=== PATIENT | female | born 1960 | race African-American/Black ===

== ENCOUNTER 2017-03-20 19:54 | Emergency (ER) | payer MEDICARE, MEDICAID ==
[~2017-03-20] VITALS: Ht 162.6 cm; Wt 111.1 kg
--- NOTE | 2017-03-20 20:39 | Emergency Room Report ---
History of Present Illness General Chief Complaint: General Complaint Source: Patient (Ezequiel Parker M.D.) Present Illness HPI Patient presents with increased pain in her left ankle. This is associated with swelling of her left leg and calf pain. In addition she's had some shortness of breath and wheezing. She is a history of asthma. She does not have an inhaler at this time. She denies any fevers or chills. Just some pain in her groin and upper her lower abdomen. The pain in her abdomen is fairly significant when she has it - it doubles her over. The ankle pain is 6/10, aching/swelling, constant. No prior h/o clots. Not smoke. H/O asthma. She has heard herself wheezing. There is some VILLELA. No chest pain. She had ankle fx age 13. Has had occasional pain there since. (Ezequiel Parker M.D.) Allergies: Coded Allergies: CODEINE (Verified Allergy, Unknown, 03/20/17) PENICILLINS (Unverified Allergy, Unknown, 03/20/17) Patient History Past Medical History: see triage record Social History: Denies: smoking Reviewed Nursing Documentation: PMH: Agreed, PSxH: Agreed (Ezequiel Parker M.D.) Nursing Documentation-PMH Hx Asthma: Yes Hx Diabetes: Yes History Of Psychiatric Problem: Yes - Schizophrenia (Ezequiel Parker M.D.) Review of Systems All Other Systems: negative except mentioned in HPI (Ezequiel Parker M.D.) Physical Exam Vital Signs Date Time Temp Pulse Resp B/P Pulse Ox O2 Delivery O2 Flow Rate FiO2 03/20/17 20:02 97.9 89 16 108/71 97 Room Air Sp02 EP Interpretation: reviewed, normal General Appearance: well appearing, no apparent distress, GCS 15 Head: normocephalic Eyes: bilateral eye PERRL, bilateral eye normal inspection ENT: moist mucus membranes Neck: supple Respiratory: wheezing, expiration Cardiovascular #1: edema - L Cardiovascular #2: 2+ radial (R) Gastrointestinal: normal inspection, normal bowel sounds, non tender, no mass, non-distended Musculoskeletal: calf tenderness, swelling - ankle Neurologic: alert, oriented x3, grossly normal Psychiatric: mood/affect normal Skin: normal inspection, warm/dry (Ezequiel Parker M.D.) Medical Decision Making Diagnostic Impression: Primary Impression: Ankle pain, left Qualified Codes: M25.572 - Pain in left ankle and joints of left foot Additional Impression: Dyspnea with bronchospasm ER Course Patient presents with left ankle pain Pain and shortness of breath. Differential includes gout, asthma, pulmonary embolus, DVT amongst others. Today evaluated with a nasogastric study and also chest x-ray and labs. In addition to that she'll be treated with albuterol and toradol. EKG and CXR negative (LAE). + D dimer. CTA ordered. If non-invasive + will anticoagulate. If negative CTA will be done. Uric acid negative. Improved with treatment. Decreased pain in abd. Dyspnea improved with breathing treatment. Signed out to Dr. Chambers. Laboratory Tests Test 03/20/17 20:51 03/20/17 20:52 Urine Color Pale yellow Urine Appearance Clear Urine pH 7 (4.5-8.0) Urine Specific [place] 1.015 (1.005-1.035) Urine Protein Negative (NEGATIVE) Urine Glucose (UA) Negative (NEGATIVE) Urine Ketones Negative (NEGATIVE) Urine Occult Blood Negative (NEGATIVE) Urine Nitrite Negative (NEGATIVE) Urine Bilirubin Negative (NEGATIVE) Urine Urobilinogen 1 MG/DL (0.0-1.0) H Urine Leukocyte Esterase 2+ (NEGATIVE) H Urine RBC 0-2 /HPF (0 - 2) Urine WBC 2-4 /HPF (0 - 2) Urine Squamous Epithelial Cells Few /LPF (NONE/OCC) Urine Amorphous Sediment Few /LPF (NONE) H Urine Bacteria Few /HPF (NONE) White Blood Count 6.1 K/UL (4.8-10.8) Red Blood Count 3.78 M/UL (4.20-5.40) L Hemoglobin 11.7 G/DL (12.0-16.0) L Hematocrit 34.2 % (37.0-47.0) L Mean Corpuscular Volume 91 FL (80-99) Mean Corpuscular Hemoglobin 30.9 PG (27.0-31.0) Mean Corpuscular Hemoglobin Concent 34.1 G/DL (32.0-36.0) Red Cell Distribution Width 12.5 % (11.6-14.8) Platelet Count 199 K/UL (150-450) Mean Platelet Volume 7.1 FL (6.5-10.1) Neutrophils (%) (Auto) 54.3 % (45.0-75.0) Lymphocytes (%) (Auto) 36.4 % (20.0-45.0) Monocytes (%) (Auto) 6.3 % (1.0-10.0) Eosinophils (%) (Auto) 2.2 % (0.0-3.0) Basophils (%) (Auto) 0.9 % (0.0-2.0) Prothrombin Time 10.5 SEC (9.30-11.50) Prothrombin Time INR 1.0 (0.9-1.1) PTT 26 SEC (23-33) D-Dimer 1248 ng/mL (<500) H Sodium Level 140 mEQ/L (135-145) Potassium Level 3.6 mEQ/L (3.4-4.9) Chloride Level 99 mEQ/L (98-107) Carbon Dioxide Level 29 mEQ/L (20-30) Anion Gap 12 (5-15) Blood Urea Nitrogen 13 mg/dL (7-23) Creatinine 0.9 mg/dL (0.5-0.9) Estimate Glomerular Filtration Rate > 60 mL/min (>60) Glucose Level 118 mg/dL (74-106) H Uric Acid 6.1 mg/dL (3.0-7.5) Calcium Level 9.7 mg/dL (8.6-10.2) Total Bilirubin 0.4 mg/dL (0.0-1.2) Aspartate Amino Transferase (AST) 17 U/L (5-40) Alanine Aminotransferase (ALT) 20 U/L (3-33) Alkaline Phosphatase 88 U/L (35-104) Total Creatine Kinase 89 U/L (26-140) Troponin I < 0.30 ng/mL (<=0.30) Pro-B-Type Natriuretic Peptide 38 pg/mL (0-125) Total Protein 7.6 g/dL (6.6-8.7) Albumin 4.1 g/dL (3.5-5.2) Globulin 3.5 g/dL Albumin/Globulin Ratio 1.1 (1.0-2.7) Lipase 34 U/L (< 60) (Ezequiel Parker M.D.) ER Course Patient signed out to me. She presents with left ankle pain. Ultrasound study was negative for DVT. CT chest was negative for PE. She had a 2 cm masslike parenchymal asymmetry the right lateral breast. Recommended mammography followup. She had mammography done 3 or 4 months ago and was told everything was normal and at baseline. She has some deformity to her left ankle medially. Appear to be enlarged calcified bone. She said that she broke her ankle when she was 15. She's been having problem with it since. (JEANMARIE CHAMBERS M.D.) EKG Diagnostic Results Rate: normal Rhythm: NSR ST Segments: no acute changes (Ezequiel Parker M.D.) Rhythm Strip Diag. Results EP Interpretation: yes Rhythm: NSR, no PVC's, no ectopy (Ezequiel Parker M.D.) Chest X-Ray Diagnostic Results EP Interpretation: Yes Findings: no consolidation, no effusion, no pneumothorax, no acute cardiopulmonary disease Number of Views: 1 (Ezequiel Parker M.D.) Other X-Ray Diagnostic Results Other X-Ray Diagnostic Results : X-Ray Ordered: Ultrasound of left leg Date: Mar 21, 2017 Time: 00:03 EP Interpretation: No Findings: other - No DVT per jerker. (JEANMARIE CHAMBERS M.D.) CT/MRI/US Diagnostic Results CT/MRI/US Diagnostic Results : Imaging Test Ordered: CT chest Impression no central PE per radiologist. (JEANMARIE CHAMBERS M.D.) Last Vital Signs Date Time Temp Pulse Resp B/P Pulse Ox O2 Delivery O2 Flow Rate FiO2 03/21/17 00:18 98.0 77 16 128/76 98 Room Air Status: improved (Ezequiel Parker M.D.) Status: improved (JEANMARIE CHAMBERS M.D.) Disposition: HOME, SELF-CARE Condition: Stable Scripts Ibuprofen* (MOTRIN*) 600 Mg Tablet 600 MG ORAL THREE TIMES A DAY, #30 TAB 0 Refills Prov: JEANMARIE CHAMBERS M.D. 03/21/17 Hydrocodone/Acetaminophen 5-325* (HYDROCODONE/ACETAMINOPHEN 5-325*) 1 Each Tablet 1 TAB ORAL Q6H Y for For Pain, #20 TAB 0 Refills Prov: JEANMARIE CHAMBERS M.D. 03/21/17 Additional Instructions: Followup with your DrVivienne in 7 days. Return if symptom worsen. Ezequiel Parker M.D. Mar 20, 2017 20:39 JEANMARIE CHAMBERS M.D. Mar 21, 2017 00:05
[2017-03-20] MEDS ORDERED: Ketorolac 30mg Inj IV ONE (20:45)
[2017-03-20] MEDS ORDERED: Ipratropium 0.02% Inh Soln 2.5ml UD HHN ONE (20:45)
[2017-03-20] MEDS ORDERED: Albuterol ud Inhalation HHN ONE (20:45)
[2017-03-20] MEDS ORDERED: LEVOTHYROXINE75 MCG ORAL (21:16)
[2017-03-20] MEDS ORDERED: LORATADINE10 M2 PO (21:16)
[2017-03-20] MEDS ORDERED: VITAMINS PO (21:16)
[2017-03-20 21:18] LABS: APPEARANCE,URINE CLEAR; KETONES,URINE NEGATIVE (NEGATIVE); LEUKOCYTE ESTERASE ,URINE 2+ (NEGATIVE); NITRITE,URINE NEGATIVE (NEGATIVE); PH,URINE 7 (4.5-8.0); PROTEIN,URINE NEGATIVE (NEGATIVE); UROBILINOGEN,URINE 1 MG/DL (0.0-1.0)
[2017-03-20] MEDS ORDERED: ADVAIR 100-501 EACH INH (21:18)
[2017-03-20] MEDS ORDERED: TUSSIN DM PO (21:18)
[2017-03-20] MEDS ORDERED: OXYBUTYNIN CHLOR5 M1 ORAL (21:18)
[2017-03-20] MEDS ORDERED: TOPIRAMATE25 MG ORAL (21:20)
[2017-03-20] MEDS ORDERED: ATIVAN0.5 MG ORAL (21:20)
[2017-03-20] MEDS ORDERED: FANAPT1 MG ORAL (21:20)
[2017-03-20] MEDS ORDERED: CELEXA20 MG ORAL (21:20)
[2017-03-20] MEDS ORDERED: VENTOLIN HFA18 GM INH (21:20)
[2017-03-20 21:28] LABS: BASOPHILS % (AUTO) 0.9 % (0.0-2.0); EOSINOPHILS % (AUTO) 2.2 % (0.0-3.0); LYMPHOCYTES % (AUTO) 36.4 % (20.0-45.0); MEAN CORPUSCULAR HEMOGLOBIN 30.9 PG (27.0-31.0); MEAN CORPUSCULAR HGB CONC 34.1 G/DL (32.0-36.0); MEAN CORPUSCULAR VOLUME 91 FL (80-99); MEAN PLATELET VOLUME 7.1 FL (6.5-10.1); MONOCYTES % (AUTO) 6.3 % (1.0-10.0); NEUTROPHILS % (AUTO) 54.3 % (45.0-75.0); PLATELET COUNT 199 K/UL (150-450); RED BLOOD COUNT 3.78 M/UL (4.20-5.40); RED CELL DISTRIBUTION WIDTH 12.5 % (11.6-14.8); WHITE BLOOD COUNT 6.1 K/UL (4.8-10.8)
[2017-03-20 21:30] LABS: AMORPHOUS SEDIMENT,UR FEW /LPF; BACTERIA,URINE FEW /HPF; RBC,URINE 0-2 /HPF (0 - 2); SQUAMOUS EPITHELIAL CELL,UR FEW /LPF (NONE/OCC)
[2017-03-20 21:35] LABS: PROTHROMBIN TIME 10.5 SEC (9.30-11.50)
[2017-03-20 21:36] LABS: ALANINE AMINOTRANSFERASE 20 U/L (3-33); ALBUMIN/GLOBULIN RATIO 1.1 (1.0-2.7); ANION GAP 12 (5-15); ASPARTATE AMINO TRANSFERASE 17 U/L (5-40); CALCIUM 9.7 mg/dL (8.6-10.2); CARBON DIOXIDE 29 mEQ/L (20-30); CHLORIDE 99 mEQ/L (98-107); CREATININE 0.9 mg/dL (0.5-0.9); GLOMERULAR FILTRATION RATE > 60 mL/min (>60); HEMOLYSIS 4; LIPASE 34 U/L (< 60); POTASSIUM 3.6 mEQ/L (3.4-4.9); SODIUM 140 mEQ/L (135-145); TOTAL PROTEIN 7.6 g/dL (6.6-8.7); URIC ACID 6.1 mg/dL (3.0-7.5)
[2017-03-20 21:37] LABS: TROPONIN I < 0.30 ng/mL (<=0.30)
[2017-03-20 23:00] VITALS: BP 128/76
[2017-03-21] MEDS ORDERED: HYDROCODON-ACE1 EA15 ORAL (00:04)
[2017-03-21] MEDS ORDERED: IBUPROFEN600 MG ORAL (00:04)
[2017-03-21] MEDS ORDERED: Norco 5mg/325mg tab ONE (00:06)
[2017-03-21] MEDS ORDERED: Norco 5mg/325mg tab ORAL ONE (00:15)
[2017-03-21 00:17] VITALS: BP 124/74
[2017-03-21 00:18] VITALS: BP 128/76
--- NOTE | 2017-03-21 04:58 | Emergency Room Report ---
Physical Exam Vital Signs Date Time Temp Pulse Resp B/P Pulse Ox O2 Delivery O2 Flow Rate FiO2 03/20/17 20:02 97.9 89 16 108/71 97 Room Air Medical Decision Making Diagnostic Impression: Primary Impression: Ankle pain, left Qualified Codes: M25.572 - Pain in left ankle and joints of left foot Additional Impression: Dyspnea with bronchospasm ER Course Patient presents with ankle pain. Her ultrasound was negative. I thought that she R. he had a CT chest. I was mistaken. This was from another patient. She did not get a CT chest. She did not have any respiratory issue. She said she felt better. I discharged her believing that CT was already done and was negative. We will call her back. We'll get a CT to rule out PE. Last Vital Signs Date Time Temp Pulse Resp B/P Pulse Ox O2 Delivery O2 Flow Rate FiO2 03/21/17 00:18 98.0 77 16 128/76 98 Room Air Disposition: HOME, SELF-CARE Condition: Stable Scripts Ibuprofen* (MOTRIN*) 600 Mg Tablet 600 MG ORAL THREE TIMES A DAY, #30 TAB 0 Refills Prov: JEANMARIE CHAMBERS M.D. 03/21/17 Hydrocodone/Acetaminophen 5-325* (HYDROCODONE/ACETAMINOPHEN 5-325*) 1 Each Tablet 1 TAB ORAL Q6H Y for For Pain, #20 TAB 0 Refills Prov: JEANMARIE CHAMBERS M.D. 03/21/17 Referrals: NON PHYSICIAN (PCP) Patient Instructions: Ankle Pain Additional Instructions: Followup with your DrVivienne in 7 days. Return if symptom worsen. JEANMARIE CHAMBERS M.D. Mar 21, 2017 04:58
[2017-03-21] MEDS ORDERED: ALBUTEROL SULF8.5 GM INH (14:13)
--- NOTE | 2017-03-22 09:42 | Diagnostic Imaging Report ---
Indications: DYSPNEA Technique: Portable AP chest Findings: Comparison: None Mild lung volume asymmetry, right greater left. Small soft tissue convexity left cardiophrenic angle. Left costophrenic angle mildly blunted; right sharp. Lungs otherwise clear. Cardiac silhouette apparently mildly enlarged. Pulmonary vasculature within normal limits. Aortic arch calcified. Thoracic spine demonstrates mild scoliosis and bridging disc marginal osteophytes. IMPRESSION: Left] density most likely prominent epicardial fat pad. Left the left costophrenic angle may be due to above. Small pleural effusion not excludable. No other evidence of acute crater pulmonary disease Apparent mild cardiomegaly, may be artifactually enhanced by technique. Ureter sclerosis Degenerative spondylosis and scoliosis Upright PA and lateral chest radiographs with better inspiratory effort and optimal technique recommended for more complete evaluation.
--- NOTE | 2017-03-22 14:28 | Diagnostic Imaging Report ---
APPROVED REPORT CPT Code: 91827 Present Symptoms Lower Extremity Pain: Left Lower Extremity Edema: Left LEFT LEG: Venous imaging reveals a patent deep venous system. There is no evidence of thrombus within the femoral, popliteal or tibial segments. The greater saphenous vein is also within normal limits. Doppler indicates normal spontaneous flow within these segments.
== END 2017-03-21 00:22 | disposition home or self-care (01) ==
LOC: EMR 20:30
DX: M25.572 Pain in left ankle and joints of left foot (principal); R06.00 Dyspnea, unspecified; J98.01 Acute bronchospasm; J45.909 Unspecified asthma, uncomplicated; Z88.6 Allergy status to analgesic agent; Z88.0 Allergy status to penicillin; E11.9 Type 2 diabetes mellitus without complications; F20.9 Schizophrenia, unspecified
CPT/HCPCS: 36415; 71010; 80053; 81003; 82550; 83690; 83880; 84484; 84550; 85025; 85379; 85610; 85730; 93005; 93971; 94640; 94664; 96374; 99284; J1885

== ENCOUNTER 2017-03-21 08:22 | Emergency (ER) | payer MEDICARE, MEDICAID ==
[~2017-03-21] VITALS: Ht 162.6 cm; Wt 113.4 kg
[~2017-03-21 08:22] MED LIST: ADVAIR 100-501 EACH INH; ATIVAN0.5 MG ORAL; CELEXA20 MG ORAL; FANAPT1 MG ORAL; HYDROCODON-ACE1 EA15 ORAL; IBUPROFEN600 MG ORAL; LEVOTHYROXINE75 MCG ORAL; LORATADINE10 M2 PO; OXYBUTYNIN CHLOR5 M1 ORAL; TOPIRAMATE25 MG ORAL; TUSSIN DM PO; VENTOLIN HFA18 GM INH; VITAMINS PO
--- NOTE | 2017-03-21 08:52 | Emergency Room Report ---
History of Present Illness General Chief Complaint: General Complaint Source: Patient Present Illness HPI Patient presents back after being called by hospital Patient was here last night apparently was thought to have CT chest However this had not been done Patient was here previously with ankle swelling and questionable shortness of breath At this time denies any shortness of breath Denies any chest pain However given the elevated d-dimer and the patient's previous evaluation Patient presents back to have her imaging studies completed Allergies: Coded Allergies: CODEINE (Verified Allergy, Unknown, 03/20/17) PENICILLINS (Unverified Allergy, Unknown, 03/20/17) Patient History Past Medical History: see triage record Pertinent Family History: none Reviewed Nursing Documentation: PMH: Agreed, PSxH: Agreed Nursing Documentation-PMH Hx Cardiac Problems: Yes - thyroid Hx Asthma: Yes Hx Diabetes: Yes History Of Psychiatric Problem: Yes - Schizophrenia Review of Systems All Other Systems: negative except mentioned in HPI Physical Exam Vital Signs Date Time Temp Pulse Resp B/P Pulse Ox O2 Delivery O2 Flow Rate FiO2 03/21/17 08:27 97.9 72 18 119/79 96 Room Air Sp02 EP Interpretation: reviewed, normal General Appearance: well appearing, no apparent distress Head: normocephalic, atraumatic Eyes: bilateral eye EOMI, bilateral eye PERRL ENT: hearing grossly normal, normal pharynx, TMs + canals normal, uvula midline Neck: full range of motion, supple, no meningismus, no bony tend Respiratory: lungs clear, normal breath sounds, no rhonchi, no respiratory distress, no retraction, no accessory muscle use Cardiovascular #1: normal peripheral pulses, regular rate, rhythm, no edema, no gallop, no JVD, no murmur Gastrointestinal: normal bowel sounds, non tender, soft, no mass, no organomegaly, non-distended, no guarding, no hernia, no pulsatile mass, no rebound Genitourinary: no CVA tenderness Musculoskeletal: swelling - Very minimal swelling involving affected ankle fairly well localized Neurologic: oriented x3, responsive, rating officer III-XII nml as tested, motor strength/ tone normal, sensory intact Psychiatric: mood/affect normal Skin: normal color, no rash, warm/dry, palpation normal Lymphatic: normal inspection, no adenopathy Medical Decision Making Diagnostic Impression: Primary Impression: Ankle pain, left ER Course Patient had a fairly extensive course in the emergency room There was 2 different occasions with IV infiltration Eventually IV established Patient's CT was performed without any evidence of pulmonary embolism Patient remained asymptomatic throughout her course otherwise And is otherwise stable for close outpatient followup CT/MRI/US Diagnostic Results CT/MRI/US Diagnostic Results : Impression CTA chestIMPRESSION: No evidence of pulmonary embolism Pulmonary bibasal subsegmental atelectasis Suggestion of flow-limiting stenosis right subclavian vein Degenerative spondylosis Last Vital Signs Date Time Temp Pulse Resp B/P Pulse Ox O2 Delivery O2 Flow Rate FiO2 03/21/17 08:27 97.9 72 18 119/79 96 Room Air Status: improved Disposition: HOME, SELF-CARE Condition: Improved Referrals: NON PHYSICIAN (PCP) Additional Instructions: Patient is provided with the discharge instructions notified to follow up with primary doctor in the next 2-3 days otherwise return to the er with any worsening symptoms. Please note that this report is being documented using [email or web address] technology. This can lead to erroneous entry secondary to incorrect interpretation by the dictating instrument. KENA SALTER D.O. Mar 21, 2017 08:51
--- NOTE | 2017-03-21 11:39 | Diagnostic Imaging Report ---
Indications: Shortness of breath 4 days Technique: Continuous helical CT imaging of the thorax was performed with automatic exposure control, following bolus intravenous administration of nonionic iodine contrast, on a Siemens sensation [address] scanner. Axial images reconstructed at 3 mm slice thickness and 1.5 mm interval. Coronal and sagittal images were reconstructed at 3 mm slice thickness. Coronal and sagittal two-dimensional maximum intensity projection and three-dimensional volume-rendered images were reconstructed on a stand alone workstation. Patient injected and scanned twice due to poor initial contrast bolus. CTDI volume(s): 13x2, 2:15, 35, 36 mGy Total DLP: 1446, 1194 mGy-cm Findings: Comparison: None The main pulmonary artery, right and left pulmonary arteries, and pulmonary artery branches to the level of third order branching are patent and well-opacified. No intraluminal filling defects are demonstrated. Thoracic aorta and great vessels are patent and well-opacified with mild scattered calcified plaquing, normal in caliber and configuration. No evidence of aneurysm, dissection, or leak. Size. No pericardial abnormality. No mediastinal or hilar enlarged lymph nodes, other abnormal mass fluid collection. Significant residual opacification of right central veins and associated collateral venous branches in right chest wall and neck base. Lungs normally, symmetrically inflated. Irregular pleural-based linear and patchy opacities in the dependent portions of both lung bases. Small right pleural effusion. Chest wall soft tissues otherwise nonfocal. Imaged upper abdominal anatomy unremarkable. Bridging osteophytes throughout thoracic spine. IMPRESSION: No evidence of pulmonary embolism Pulmonary bibasal subsegmental atelectasis Suggestion of flow-limiting stenosis right subclavian vein Degenerative spondylosis
[2017-03-21 13:07] VITALS: BP 125/83
[2017-03-21] MEDS ORDERED: ALBUTEROL SULF8.5 GM INH (14:13)
== END 2017-03-21 13:09 | disposition home or self-care (01) ==
LOC: EMR 08:39
DX: M25.572 Pain in left ankle and joints of left foot (principal); M47.9 Spondylosis, unspecified; J98.11 Atelectasis; J90 Pleural effusion, not elsewhere classified; Z88.6 Allergy status to analgesic agent; Z88.0 Allergy status to penicillin; J45.909 Unspecified asthma, uncomplicated; E11.9 Type 2 diabetes mellitus without complications; F20.9 Schizophrenia, unspecified
CPT/HCPCS: 71275; 99284; Q9967

== ENCOUNTER 2018-10-22 10:14 | Emergency (ER) | payer MEDICARE, OTHER ==
[~2018-10-22] VITALS: Ht 162.6 cm; Wt 113.4 kg
[~2018-10-22 10:14] MED LIST changes: +ALBUTEROL SULF8.5 GM INH
[2018-10-22] MEDS ORDERED: ZITHROMAX250 MG ORAL (10:54)
[2018-10-22] MEDS ORDERED: IBUPROFEN600 MG ORAL (10:54)
[2018-10-22 10:59] VITALS: BP_SYST 122; BP_DIAS 74; BP_DIAS 84
--- NOTE | 2018-10-22 12:54 | Emergency Room Report ---
History of Present Illness General Chief Complaint: Upper Respiratory Illness Source: Patient Present Illness HPI 58-year-old female presents ED for evaluation. Complaining of runny nose cough and sore throat 3 days. Afebrile. Denies sick contacts or travel. Cough is dry. Pain is 5 out of 10, throbbing, nonradiating. No other aggravating relieving factors. Denies any other associated symptoms Allergies: Coded Allergies: CODEINE (Verified Allergy, Unknown, 03/20/17) PENICILLINS (Unverified Allergy, Unknown, 03/20/17) Patient History Past Medical History: asthma Past Surgical History: none Pertinent Family History: none Social History: Denies: smoking, alcohol use, drug use Now: No Immunizations: UTD Reviewed Nursing Documentation: PMH: Agreed; PSxH: Agreed Nursing Documentation-PMH Past Medical History: No History, Except For Hx Cardiac Problems: Yes - thyroid Hx Asthma: Yes Hx Diabetes: Yes - Hypothyroid Review of Systems All Other Systems: negative except mentioned in HPI Physical Exam Vital Signs Date Time Temp Pulse Resp B/P (MAP) Pulse Ox O2 Delivery O2 Flow Rate FiO2 10/22/18 10:16 98.1 75 20 113/76 97 Room Air Sp02 EP Interpretation: reviewed, normal General Appearance: no apparent distress, alert, GCS 15, non-toxic Head: normocephalic, atraumatic Eyes: bilateral eye normal inspection, bilateral eye PERRL ENT: hearing grossly normal, no angioedema, normal voice, pharyngeal erythema, tonsillar exudate Neck: full range of motion, supple/symm/no masses Respiratory: chest non-tender, lungs clear, normal breath sounds, speaking full sentences Cardiovascular #1: regular rate, rhythm, no edema Cardiovascular #2: 2+ carotid (R), 2+ carotid (L), 2+ radial (R), 2+ radial (L) , 2+ dorsalis pedis (R), 2+ dorsalis pedis (L) Gastrointestinal: normal bowel sounds, non tender, soft, non-distended, no guarding, no rebound Rectal: deferred Genitourinary: normal inspection, no CVA tenderness Musculoskeletal: back normal, gait/station normal, normal range of motion, non- tender Neurologic: alert, oriented x3, responsive, motor strength/tone normal, sensory intact, speech normal Psychiatric: judgement/insight normal, memory normal, mood/affect normal, no suicidal/homicidal ideation Reflexes: 3+ bicep (R), 3+ bicep (L), 3+ tricep (R), 3+ tricep (L), 3+ knee (R) , 3+ knee (L) Skin: normal color, no rash, warm/dry, well hydrated Lymphatic: no adenopathy Medical Decision Making Diagnostic Impression: Primary Impression: Pharyngitis Qualified Codes: J02.9 - Acute pharyngitis, unspecified ER Course Hospital Course 58-year-old female presents to ED complaining of sore throat + cough Differential diagnoses include: URI, pharyngitis, otitis media Clinical course Patient placed on stretcher. After initial history, physical exam reveals a middle aged female in no acute distress. Bilateral TM unremarkable. There is pharyngeal erythema w/ tonsillar exudates. No lymphadenopathy. Clinical findings consistent with pharyngitis. Reassurance given. Safe for discharge close outpatient follow-up. We'll provide prescription for antibiotics Diagnosis - pharyngitis Stable and discharged home with prescriptions for evy see. Instructed to followup with PMD. return to ED if symptoms recur or worsen Last Vital Signs Date Time Temp Pulse Resp B/P (MAP) Pulse Ox O2 Delivery O2 Flow Rate FiO2 10/22/18 10:59 98.5 77 17 122/84 98 Room Air Status: improved Disposition: HOME, SELF-CARE Condition: Stable Scripts Ibuprofen* (MOTRIN*) 600 Mg Tablet 600 MG ORAL Q8H PRN for For Pain, #30 TAB 0 Refills Prov: Ruben Jimenez MD 10/22/18 Azithromycin* (ZITHROMAX*) 250 Mg Tablet 250 MG ORAL DAILY, #6 TAB 0 Refills Take two tables once daily for 1 day, then one tablet once daily for 4 days. Prov: Ruben Jimenez MD 10/22/18 Patient Instructions: Pharyngitis, [id number] Ruben Jimenez MD Oct 22, 2018 12:54
== END 2018-10-22 10:59 | disposition home or self-care (01) ==
LOC: EMR 10:44
DX: J02.9 Acute pharyngitis, unspecified (principal); E03.9 Hypothyroidism, unspecified; J45.909 Unspecified asthma, uncomplicated; Z88.0 Allergy status to penicillin; Z88.5 Allergy status to narcotic agent
CPT/HCPCS: 99283

== ENCOUNTER 2018-11-20 14:19 | Emergency (ER) | payer MEDICARE, OTHER ==
[~2018-11-20] VITALS: Ht 162.6 cm; Wt 115.2 kg
[~2018-11-20 14:19] MED LIST changes: +ZITHROMAX250 MG ORAL
[2018-11-20 14:24] VITALS: BP 125/87
[2018-11-20] MEDS ORDERED: TESSALON PERLE100 MG ORAL (14:52)
--- NOTE | 2018-11-20 14:52 | Emergency Room Report ---
History of Present Illness General Chief Complaint: Sore Throat Source: Patient Present Illness HPI 58-year-old female patient presents the ER complaining of sore throat times 3 days. Patient reports pain with swallowing. Patient reports dry cough during this time. Patient denies fever. Denies recent travel. Reports has been taking cough medicine at home. Reports history of asthma, denies breathing difficulties or shortness of breath. Reports has been using inhaler at home. Denies abdominal pain or vomiting. Denies recent cold. Denies calf pain. Allergies: Coded Allergies: CODEINE (Verified Allergy, Unknown, 03/20/17) PENICILLINS (Unverified Allergy, Unknown, 03/20/17) Patient History Past Medical History: see triage record Reviewed Nursing Documentation: PMH: Agreed; PSxH: Agreed Nursing Documentation-PMH Past Medical History: No History, Except For Hx Cardiac Problems: Yes Hx Hypertension: No Hx Pacemaker: No Hx Asthma: Yes Hx COPD: No Hx Diabetes: Yes - Hypothyroid Hx Cancer: No Hx Gastrointestinal Problems: No Hx Dialysis: No History Of Psychiatric Problem: Yes - Schizophrenia Hx Neurological Problems: No Hx Cerebrovascular Accident: No Hx Seizures: No Review of Systems All Other Systems: negative except mentioned in HPI Physical Exam Vital Signs Date Time Temp Pulse Resp B/P (MAP) Pulse Ox O2 Delivery O2 Flow Rate FiO2 11/20/18 14:24 98.2 85 14 125/87 94 Room Air Sp02 EP Interpretation: reviewed, normal General Appearance: well appearing, no apparent distress, alert, GCS 15, non- toxic Head: normocephalic, atraumatic Eyes: bilateral eye normal inspection, bilateral eye PERRL ENT: hearing grossly normal, normal pharynx, no angioedema, normal voice, TMs + canals normal, uvula midline, moist mucus membranes Neck: full range of motion Respiratory: lungs clear, normal breath sounds, no rhonchi, no respiratory distress, no accessory muscle use, no wheezing, speaking full sentences Cardiovascular #1: regular rate, rhythm, no edema Musculoskeletal: back normal, digits/nails normal, gait/station normal, normal range of motion, non-tender, no calf tenderness, Karen's Sign negative Neurologic: alert, oriented x3, responsive, motor strength/tone normal, sensory intact Psychiatric: mood/affect normal Skin: no rash Lymphatic: no adenopathy Medical Decision Making PA Attestation Dr. Goldman is my supervising Physician whom patient management has been discussed with. Diagnostic Impression: Primary Impression: Sore throat Additional Impression: Cough ER Course Pt presents to ED c/o sore throat. DDX considered but are not limited to pharyngitis, laryngitis, URI, peritonsillar abscess, tonsillitis, pneumonia. Low suspicion for peritonsillar abscess, no neck stiffness, no hot potato voice , no stridor. Lungs clear to auscultation, no wheezes, rhonci, rales, afebrile, no fever at home, low suspicion for PNA. Does not require imaging at this time. VITAL SIGNS are WNL, patient is afebrile. ER COURSE: Provided with viscous lidocaine and Tessalon Perles for cough in the ER. Physical exam shows no pharyngeal erythema or tonsillar swelling, no tonsillar exudates, fever, no lymphadenopathy, history of cough, low suspicion for bacterial etiology of symptoms, likely viral in nature. Lungs clear to auscultation, no wheezes rhonchi rales, denies difficulty breathing, declines need for refill of albuterol medication or breathing treatment while in the ER. Sore throat likely secondary to cough, advised patient to take Tylenol. Patient reports feeling better following administration of medication Salt water gargles Follow-up with primary care provider. ER precautions given. DISCHARGE: Rx provided for Tessalon Perles At this time pt is stable for d/c to home. Patient is resting comfortably, in no acute distress, nontoxic appearing, talking without difficulty. Will provide with patient care instructions and any necessary prescriptions. Patient to take medication as instructed. Care plan and follow-up instructions provided. Patient questions asked and answered. Patient instructed to follow-up with primary care provider in 3 - 5 days. ER precautions given. Patient instructed to return to ER immediately for any new or worsening of symptoms including but not limited to intractable vomiting, difficulty breathing, inability to eat. - Please note that this Emergency Department Report was dictated using [employer] Technologiespatient scheduling coordinator technology software, occasionally this can lead to erroneous entry secondary to interpretation by the dictation equipment. Last Vital Signs Date Time Temp Pulse Resp B/P (MAP) Pulse Ox O2 Delivery O2 Flow Rate FiO2 11/20/18 14:24 98.2 85 14 125/87 94 Room Air Status: improved Disposition: HOME, SELF-CARE Condition: Stable Scripts Benzonatate* (PREETISALMICHAEL POLO*) 100 Mg Capsule 100 MG ORAL THREE TIMES A DAY, #20 PERLE Prov: Lance Colin 11/20/18 Patient Instructions: Cough, Adult, [id number], Sore Throat Additional Instructions: Followup with primary care provider in 3 -5 days. Salt water gargles Take Tylenol for pain and fever symptoms Drink plenty of water. Take medications as directed. Patient questions asked and answered. ER precautions given, patient instructed to return to ER immediately for any new or worsening of symptoms including but not limited to intractable vomiting, difficulty breathing, inability to eat. Lance Colin Nov 20, 2018 14:52
[2018-11-20 14:59] VITALS: BP 112/68
[2018-11-20] MEDS ORDERED: Benzonatate 100mg Perles ORAL ONE (15:00)
[2018-11-20] MEDS ORDERED: Lidocaine 2% Visc 15ml soln ORAL ONE (15:00)
== END 2018-11-20 14:59 | disposition home or self-care (01) ==
LOC: EMR 14:50
DX: J02.9 Acute pharyngitis, unspecified (principal); R05 Cough; E03.9 Hypothyroidism, unspecified; J45.909 Unspecified asthma, uncomplicated; F20.9 Schizophrenia, unspecified
CPT/HCPCS: 99282

== ENCOUNTER 2019-08-16 17:50 | Emergency (ER) | payer MEDICARE, OTHER ==
[~2019-08-16] VITALS: Ht 162.6 cm; Wt 116.1 kg
[~2019-08-16 17:50] MED LIST changes: +TESSALON PERLE100 MG ORAL
--- NOTE | 2019-08-16 18:35 | NUR ---
ED Nurse Note:x-ray, EKG done ,blood and urine sent to labs
[2019-08-16 18:36] VITALS: BP 129/86
[2019-08-16 19:12] LABS: BASOPHILS % (AUTO) 1.3 % (0.0-2.0); EOSINOPHILS % (AUTO) 2.1 % (0.0-3.0); HEMATOCRIT 35.9 % (37.0-47.0); HEMOGLOBIN 11.8 G/DL (12.0-16.0); LYMPHOCYTES % (AUTO) 33.9 % (20.0-45.0); MEAN CORPUSCULAR VOLUME 91 FL (80-99); MONOCYTES % (AUTO) 8.6 % (1.0-10.0); NEUTROPHILS % (AUTO) 54.2 % (45.0-75.0); PLATELET COUNT 196 K/UL (150-450); RED BLOOD COUNT 3.92 M/UL (4.20-5.40); RED CELL DISTRIBUTION WIDTH 11.6 % (11.6-14.8); WHITE BLOOD COUNT 5.3 K/UL (4.8-10.8)
[2019-08-16 19:14] LABS: ANION GAP 9 mmol/L (5-15); BLOOD UREA NITROGEN 8 mg/dL (7-18); CALCIUM 9.2 MG/DL (8.5-10.1); CARBON DIOXIDE 25 MMOL/L (21-32); CHLORIDE 110 MMOL/L (98-107); CREATININE 0.9 MG/DL (0.55-1.30); POTASSIUM 3.7 MMOL/L (3.5-5.1); SODIUM 144 MMOL/L (136-145)
[2019-08-16 19:18] LABS: ALANINE AMINOTRANSFERASE 20 U/L (12-78); ALBUMIN 3.6 G/DL (3.4-5.0); ALBUMIN/GLOBULIN RATIO 0.8 (1.0-2.7); ALKALINE PHOSPHATASE 100 U/L (46-116); ASPARTATE AMINO TRANSFERASE 16 U/L (15-37); BILIRUBIN,TOTAL 0.4 MG/DL (0.2-1.0)
--- NOTE | 2019-08-16 19:24 | Emergency Room Report ---
History of Present Illness General Chief Complaint: Pain Source: Medical Record Present Illness HPI 58-year-old female with history of diabetes currently controlled with metformin here complaining of 2 days of pain on the right side of his jaw. Patient denies any recent dental work however reports that her right lower molar tooth has been hurting for several days and had an appointment on August 23 for her dental care. Patient denies any chest pain radiation however reports that 2 days ago started having a sharp pain in the left her chest that started as she was changing position from sitting to standing however has not had the pain ever since. Rates a 3 out of 10 at the time. Denies any pain radiation to jaw or arm. Denies tingling and numbness sensation, shortness of breath, palpitation, abdominal pain, nausea vomiting, headache, dizziness, blurry vision. No motor or sensory deficits are noted. No unilateral generalized weakness are noted. Denies fever and chills, cough and congestion. No pus drainage is noted from the mouth. Allergies: Coded Allergies: PENICILLINS (Unverified Allergy, Unknown, 03/20/17) Patient History Past Medical History: see triage record Past Surgical History: unable to obtain Pertinent Family History: none Last Menstrual Period: hysterectomy on 1998 Now: No Immunizations: UTD Reviewed Nursing Documentation: PMH: Agreed; PSxH: Agreed Nursing Documentation-PMH Past Medical History: No History, Except For Hx Cardiac Problems: Yes Hx Hypertension: No Hx Pacemaker: No Hx Asthma: Yes Hx COPD: No Hx Diabetes: Yes - Hypothyroid Hx Cancer: No Hx Gastrointestinal Problems: No Hx Dialysis: No Hx Neurological Problems: No Hx Cerebrovascular Accident: No Hx Seizures: No Review of Systems All Other Systems: negative except mentioned in HPI Physical Exam Vital Signs Date Time Temp Pulse Resp B/P (MAP) Pulse Ox O2 Delivery O2 Flow Rate FiO2 08/16/19 17:59 98.4 65 18 129/86 (100) 96 Room Air Sp02 EP Interpretation: reviewed, normal General Appearance: no apparent distress, alert, GCS 15, non-toxic Head: normocephalic, atraumatic Eyes: bilateral eye normal inspection, bilateral eye PERRL ENT: hearing grossly normal, normal pharynx, no angioedema, normal voice, TMs + canals normal, other - swelling right maxilla Neck: full range of motion, supple/symm/no masses Respiratory: normal inspection, chest non-tender, lungs clear, normal breath sounds, no rhonchi, no wheezing Cardiovascular #1: regular rate, rhythm, no edema, no murmur Gastrointestinal: normal bowel sounds, non tender, soft, non-distended, no guarding, no rebound Rectal: deferred Genitourinary: normal inspection, no CVA tenderness Musculoskeletal: back normal, gait/station normal, normal range of motion, non- tender, no calf tenderness, swelling - right maxilla Neurologic: alert, oriented x3, responsive, motor strength/tone normal, sensory intact, speech normal Psychiatric: judgement/insight normal, memory normal, mood/affect normal, no suicidal/homicidal ideation Skin: no rash Lymphatic: no adenopathy Medical Decision Making PA Attestation All my diagnosis and treatment plans were reviewed ad discussed with my supervising physician Dr. Goldman Diagnostic Impression: Primary Impression: Tooth infection Additional Impression: Chest pain, unspecified ER Course 58-year-old female with history of diabetes currently controlled with metformin here complaining of 2 days of pain on the right side of his jaw. Patient denies any recent dental work however reports that her right lower molar tooth has been hurting for several days and had an appointment on August 23 for her dental care. Patient denies any chest pain radiation however reports that 2 days ago started having a sharp pain in the left her chest that started as she was changing position from sitting to standing however has not had the pain ever since. Rates a 3 out of 10 at the time. Denies any pain radiation to jaw or arm. Denies tingling and numbness sensation, shortness of breath, palpitation, abdominal pain, nausea vomiting, headache, dizziness, blurry vision. No motor or sensory deficits are noted. No unilateral generalized weakness are noted. Denies fever and chills, cough and congestion. No pus drainage is noted from the mouth. Ddx considered but are not limited to: [place], Angina, COPD, GERD, unspecified chest pain, tooth infection versus abscess Vital signs: are WNL, pt. is afebrile H&PE are most consistent with tooth infection, unspecified chest pain ORDERS: EKG, Chest XR, cbc, cmp, ua, troponin, clindamycin, ibuprofen ED INTERVENTIONS: None required at this time. DISCHARGE: At this time pt. is stable for d/c to home. Will provide printed patient care instructions, and any necessary prescriptions. Care plan and follow up instructions have been discussed with the patient prior to discharge. At this time no further work-up is needed regarding unspecified chest pain patient to follow-up with her primary care provider if symptoms continue also follow-up with your dentist regarding your tooth pain. EKG Diagnostic Results Rate: normal Rhythm: NSR ST Segments: no acute changes Other Impression No acute ST changes noted Chest X-Ray Diagnostic Results Chest X-Ray Diagnostic Results : Chest X-Ray Ordered: Yes # of Views/Limited/Complete: 1 View Indication: Chest Pain EP Interpretation: Yes BHUMI Xray: Interpretation reviewed, by supervising MD, and agrees with findings. Interpretation: no consolidation, no effusion, no pneumothorax Impression: No acute disease Electronically Signed by: Myrtle Lopez PA-C Last Vital Signs Date Time Temp Pulse Resp B/P (MAP) Pulse Ox O2 Delivery O2 Flow Rate FiO2 08/16/19 18:36 98.4 79 18 129/86 96 Room Air Disposition: HOME, SELF-CARE Condition: Stable Scripts Ibuprofen (Ibu) 800 Mg Tablet 800 MG PO BID, #21 TAB Prov: Myrtle Gr 08/16/19 Clindamycin Hcl (CLINDAMYCIN HCL) 300 Mg Capsule 300 MG ORAL FOUR TIMES A DAY for 7 Days, #28 CAP Prov: Myrtle Gr 08/16/19 Patient Instructions: Dental Abscess, Nonspecific Chest Pain Additional Instructions: Take medication as directed follow-up with your dentist regarding your tooth infection also if your chest pain continues follow-up with your primary care provider at this time no cardiac or pulmonary etiology is noted based on your blood work and your imaging. Myrtle Gr Aug 16, 2019 19:24
[2019-08-16] MEDS ORDERED: CLINDAMYCIN HC300 MG ORAL (19:25)
[2019-08-16] MEDS ORDERED: IBU800 MG PO (19:25)
--- NOTE | 2019-08-16 19:29 | NUR ---
ED Nurse Note: Patient just provided urine sample, unable to provide earlier, sample taken to lab.
--- NOTE | 2019-08-16 19:32 | NUR ---
ED Nurse Note: Patient cleared for discharge by ER provider. Patient ID band removed. Patient verbalized understanding of discharge instructions. Patient departed with all belongings with no s/s of acute distress.
[2019-08-16 19:33] VITALS: BP 129/86
[2019-08-16 19:36] LABS: APPEARANCE,URINE CLEAR; BILIRUBIN, URINE NEGATIVE (NEGATIVE); GLUCOSE, URINE (UA) NEGATIVE (NEGATIVE); KETONES,URINE 1+ (NEGATIVE); LEUKOCYTE ESTERASE ,URINE 1+ (NEGATIVE); NITRITE,URINE NEGATIVE (NEGATIVE); PH,URINE 6 (4.5-8.0); PROTEIN,URINE 1+ (NEGATIVE); UROBILINOGEN,URINE 1 MG/DL (0.0-1.0)
[2019-08-16 19:38] LABS: COLOR,URINE YELLOW
--- NOTE | 2019-08-17 11:20 | Diagnostic Imaging Report ---
Indication: Chest pain Comparison: 03/20/2017 A single view chest radiograph was obtained. Findings: Cardiomediastinal appearance is within normal limits for age. The lungs are clear. Pulmonary vascularity is appropriate. The diaphragmatic contour is smooth and costophrenic angles are sharp. No pleural effusions are identified. The bones are unremarkable. Impression: No acute findings
== END 2019-08-16 19:40 | disposition home or self-care (01) ==
LOC: EMR 19:05
DX: K08.89 Other specified disorders of teeth and supporting structures (principal); R07.9 Chest pain, unspecified; E11.9 Type 2 diabetes mellitus without complications; E03.9 Hypothyroidism, unspecified; J45.909 Unspecified asthma, uncomplicated; Z88.0 Allergy status to penicillin; Z90.710 Acquired absence of both cervix and uterus
CPT/HCPCS: 36415; 71045; 80053; 81001; 84484; 85025; 93005; 99283

== ENCOUNTER 2020-11-15 21:01 | Emergency (ER) | payer MEDICARE, OTHER ==
[~2020-11-15] VITALS: Ht 162.6 cm; Wt 117.9 kg
[~2020-11-15 21:01] MED LIST changes: +CLINDAMYCIN HC300 MG ORAL; +IBU800 MG PO
[2020-11-15 21:32] VITALS: BP 126/76
[2020-11-15] MEDS ORDERED: FLONASE ALLERG9.9 ML NS (21:41)
[2020-11-15] MEDS ORDERED: TESSALON PERLE100 MG ORAL (21:41)
[2020-11-15] MEDS ORDERED: LORATADINE10 M2 PO (21:41)
[2020-11-15] MEDS ORDERED: IBUPROFEN600 M1 ORAL (21:42)
[2020-11-15 21:50] VITALS: BP 126/76
--- NOTE | 2020-11-15 21:54 | Emergency Room Report ---
History of Present Illness General Chief Complaint: Sore Throat Present Illness HPI Disclaimer: Please note that this report is being documented using [employer] technology. This can lead to erroneous entry secondary to incorrect interpretation by the dictating instrument. HPI: She denies sick contacts. 60-year-old female presents with sore throat, nasal congestion and cough. She states symptoms present for the past 2 days. She had a recent negative coronavirus test. No nausea no vomiting no diarrhea no shortness of breath. Allergies: Coded Allergies: PENICILLINS (Unverified Allergy, Unknown, 03/20/17) COVID-19 Screening Contact w/high risk pt: No Experienced COVID-19 symptoms?: Yes COVID-19 Testing performed FIELD AGENT: No Patient History Reviewed Nursing Documentation: PMH: Agreed; PSxH: Agreed Nursing Documentation-PMH Hx Cardiac Problems: Yes Hx Hypertension: No Hx Pacemaker: No Hx Asthma: Yes Hx COPD: No Hx Diabetes: Yes - Hypothyroid Hx Cancer: No Hx Gastrointestinal Problems: No Hx Dialysis: No History Of Psychiatric Problem: Yes Hx Neurological Problems: No Hx Cerebrovascular Accident: No Hx Seizures: No Review of Systems All Other Systems: negative except mentioned in HPI Physical Exam Vital Signs Date Time Temp Pulse Resp B/P (MAP) Pulse Ox O2 Delivery O2 Flow Rate FiO2 11/15/20 21:16 99.0 100 16 126/76 (93) 97 Room Air Sp02 EP Interpretation: reviewed, normal General Appearance: well appearing, no apparent distress Head: normocephalic, atraumatic Eyes: bilateral eye PERRL, bilateral eye EOMI ENT: hearing grossly normal, moist mucus membranes, other - No exudates, no anterior adenopathy noted Neck: full range of motion, supple Respiratory: lungs clear, normal breath sounds, no rhonchi, no respiratory distress, no retraction, no wheezing Cardiovascular #1: normal peripheral pulses, regular rate, rhythm, no murmur Gastrointestinal: non tender, soft, non-distended, no guarding Neurologic: alert, oriented x3, no focal defects Skin: normal color, warm/dry Medical Decision Making Diagnostic Impression: Primary Impression: URI (upper respiratory infection) ER Course MDM: Differential included but not limited to URI, viral pharyngitis, COVID-19, less likely strep Clinical course-patient was afebrile and in no acute distress. She had no exudates noted. She did complain of nasal congestion nonproductive cough and sore throat. She states she had a negative Covid test recently. My exam again no adenopathy no exudates no fever. Low suspicion for bacterial infection. This time will discharge with symptomatic treatment and follow-up with PMD. Given return precautions. Last Vital Signs Date Time Temp Pulse Resp B/P (MAP) Pulse Ox O2 Delivery O2 Flow Rate FiO2 11/15/20 21:32 99.0 100 16 126/76 97 Room Air Disposition: HOME, SELF-CARE Condition: Stable Scripts Ibuprofen* (MOTRIN*) 600 Mg Tablet 600 MG ORAL Q6H PRN for For Pain, #30 TAB 0 Refills Prov: Morteza Merida M.D. 11/15/20 Fluticasone Propionate (Flonase Allergy Relief) 9.9 Ml Benson.susp 9.9 ML NS DAILY, #1 UNIT Prov: Morteza Merida M.D. 11/15/20 Benzonatate* (TESSALON PERLE*) 100 Mg Capsule 100 MG ORAL THREE TIMES A DAY, #20 PERLE Prov: Morteza Merida M.D. 11/15/20 Loratadine (Claritin*) 10 Mg Tablet 10 MG PO DAILY for 30 Days, #30 TAB Prov: Morteza Merida M.D. 11/15/20 Referrals: NOT CHOSEN IPA/,REFERRING (PCP) Patient Instructions: Upper Respiratory Infection, Adult, [id number] Additional Instructions: Patient is instructed to follow-up with her primary care doctor, primary care clinic or [facility] in 1 to 2 days. Patient instructed to return for any w orsening symptoms or concerns. Morteza Merida M.D. Nov 15, 2020 21:54
== END 2020-11-15 21:50 | disposition home or self-care (01) ==
LOC: EMR 21:30
DX: J06.9 Acute upper respiratory infection, unspecified (principal); I51.9 Heart disease, unspecified; J45.909 Unspecified asthma, uncomplicated; E11.9 Type 2 diabetes mellitus without complications; E03.9 Hypothyroidism, unspecified; Z88.0 Allergy status to penicillin
CPT/HCPCS: 99282